=== PATIENT | male | born 1940 | race African-American/Black ===

== ENCOUNTER 2018-12-12 10:54 | Inpatient (IN) ==
[2018-12-12] MEDS ORDERED: SODIUM CHLORIDE 0.9% 500 ML IV STA (11:25)
[2018-12-12 13:15] LABS: Basophils % 0.6 % (0.0-0.8); Eosinophils % 0.6 % (0.00-10.9); Hematocrit 36.3 VOL% (42.0-52.0); Hemoglobin 11.3 GM/DL (14.0-18.0); Immature Granulocytes % 0.4 %; Immature Granulocytes Absolute 0.03 #; Lymphocytes # 0.9 10*3/uL (1.4-4.0); Lymphocytes % 13.1 % (21.2-54.2); Mean Corpuscular HGB Conc 31.1 GM/DL (32-36); Mean Corpuscular Hemoglobin 29 PG (27-34); Mean Corpuscular Volume 94.5 FL (87-102); Mean Platelet Volume 8.1 FL (9.6-12.0); Monocytes # 0.7 10*3/uL (0.11-0.8); Monocytes % 9.5 % (1.7-12.7); Neutrophils # 5.4 10*3/uL (1.4-7.4); Neutrophils % 75.8 % (38.7-73.9); Platelet Count 244 T/CUMM (130-400); Red Blood Count 3.84 MC/CUMM (3.8-5.5); Red Cell Distribution Width 17.2 % (9.3-17.3); White Blood Count 7.1 T/CUMM (4-12)
[2018-12-12 13:22] LABS: PT Patient Result 10.9 SECS; Partial Thromboplastin Time 31.3 SECS (0-40)
[2018-12-12 13:32] LABS: Apearance,Urine CLOUDY (Clear); Bilirubin,Urine Negative (Negative); Blood, Urine Small mg/dL (Negative); Glucose,Urine (UA) Negative (Negative); Ketones,Urine 5 mg/dL (Negative); Nitrite,Urine Negative (Negative); Protein,Urine 100 MG/DL; RBC,Urine 212 /HPF (0-4); Urine Color Yellow (Yellow); Urine Specific Gravity 1.012 (1.001-1.035); Urine Urobilinogen < 2.0 EU/DL (0.2-1.0); WBC,Urine 29768 /HPF (0-6)
[2018-12-12] MEDS ORDERED: LEVOFLOXACIN INJ 750 MG in PREMIX 1 EACH IV STA (13:34)
[2018-12-12 13:37] LABS: Alanine Aminotransferase 19 U/L (16-61); Albumin 3.1 G/DL (3.4-5.0); Alkaline Phosphatase 87 U/L (45-117); Aspartate Amino Transferase 69 U/L (0-37); Blood Urea Nitrogen 24 MG/DL (7-18); CKMB % 0.6 %; Calcium 9.1 MG/DL (8.5-10.1); Glucose 133 MG/DL (74-106); Osmolality,Calculated 275.1 MOS/KG (273-304); Potassium 3.4 MMOL/L (3.5-5.1); Sodium 135 MMOL/L (136-145); Total Protein 8.2 G/DL (6.4-8.3)
[2018-12-12 13:41] LABS: Troponin I 0.193 NG/ML (0.00-0.045)
[2018-12-12 13:48] LABS: Barbiturates Screen,Urine Negative (Negative); Benzodiazepines Screen,Urine Negative (Negative); Cannabinoid Screen,Urine Negative (Negative); Opiate Screen,Urine Negative (Negative); Phencyclidine Screen,Urine Negative (Negative)
[2018-12-12] MEDS ORDERED: ACETAMINOPHEN 325 MG TABLET PO PRN (15:10)
[2018-12-12] MEDS ORDERED: ONDANSETRON 4 MG/2 ML VIAL IV PRN (15:10)
[2018-12-12] MEDS ORDERED: GLUCAGON 1 MG VIAL IM PRN (15:10)
[2018-12-12] MEDS ORDERED: DEXTROSE 50% 25 GM/50 ML VIAL IV PRN (15:10)
[2018-12-12] MEDS ORDERED: EPOETIN ALFA 2,000 UNIT/1 ML VIAL IV PRN (15:13)
[2018-12-12] MEDS ORDERED: HEPARIN 10,000 UNIT/10 ML VIAL IV SCH (15:13)
[2018-12-12] MEDS: INSULIN LISPRO 100 UNIT/ML SUBCUT SCH ×2 (16:24→21:02)
[2018-12-12] MEDS: GLUCOSAMINE 500 MG TABLET PO SCH (21:02)
[2018-12-12] MEDS: HEPARIN 5,000 UNIT/1 ML VIAL SUBCUT SCH (21:02)
[2018-12-12] MEDS: MULTIVITAMIN (INTRINSIC) CAPSULE PO SCH (21:02)
[2018-12-12] MEDS: OMEGA 3 ACID ETHYL ESTERS 1 GM CAPSULE PO SCH (21:02)
[2018-12-13] MEDS: HEPARIN 5,000 UNIT/1 ML VIAL SUBCUT SCH ×3 (04:52→20:58)
[2018-12-13 05:45] LABS: Basophils # 0.1 10*3/uL (0.0-0.2); Basophils % 0.9 % (0.0-0.8); Eosinophils # 0.2 10*3/uL (0.0-0.87); Eosinophils % 2.9 % (0.00-10.9); Hematocrit 32.8 VOL% (42.0-52.0); Immature Granulocytes % 0.7 %; Immature Granulocytes Absolute 0.04 #; Lymphocytes # 1.1 10*3/uL (1.4-4.0); Mean Corpuscular HGB Conc 30.5 GM/DL (32-36); Mean Corpuscular Hemoglobin 29 PG (27-34); Mean Corpuscular Volume 94.3 FL (87-102); Mean Platelet Volume 8.4 FL (9.6-12.0); Monocytes # 0.6 10*3/uL (0.11-0.8); Monocytes % 10.8 % (1.7-12.7); Neutrophils # 3.5 10*3/uL (1.4-7.4); Neutrophils % 64.7 % (38.7-73.9); Platelet Count 248 T/CUMM (130-400); Red Blood Count 3.48 MC/CUMM (3.8-5.5); Red Cell Distribution Width 17.2 % (9.3-17.3); White Blood Count 5.5 T/CUMM (4-12)
[2018-12-13 05:57] LABS: Calcium 8.9 MG/DL (8.5-10.1); Osmolality,Calculated 277.8 MOS/KG (273-304); Potassium 3.3 MMOL/L (3.5-5.1)
[2018-12-13] MEDS ORDERED: SODIUM CHLORIDE 0.9% 500 ML IV ONE (10:12)
[2018-12-13] MEDS ORDERED: VANCOMYCIN INJ 500 MG in SODIUM CHLORIDE 0.9% 100 ML IV PRN (10:20)
[2018-12-13] MEDS: INSULIN LISPRO 100 UNIT/ML SUBCUT SCH ×4 (10:38→20:59)
[2018-12-13] MEDS: TAMSULOSIN 0.4 MG CAPSULE PO SCH (10:40)
[2018-12-13] MEDS: OMEGA 3 ACID ETHYL ESTERS 1 GM CAPSULE PO SCH ×2 (10:40→20:59)
[2018-12-13] MEDS: ASCORBIC ACID 500 MG TABLET PO SCH (10:40)
[2018-12-13] MEDS: GLUCOSAMINE 500 MG TABLET PO SCH ×2 (10:40→20:58)
[2018-12-13] MEDS: amLODIPine 5 MG TABLET PO SCH (10:41)
[2018-12-13] MEDS: MULTIVITAMIN (INTRINSIC) CAPSULE PO SCH ×2 (10:41→20:59)
[2018-12-13] MEDS: MULTIVITAMIN (CENTRUM) TABLET PO SCH (10:41)
[2018-12-13] MEDS ORDERED: VANCOMYCIN INJ 1,000 MG in SODIUM CHLORIDE 0.9% 250 ML IV ONE (11:00)
[2018-12-13] MEDS ORDERED: POTASSIUM CHLORIDE 10 MEQ TABLET PO ONE (11:55)
[2018-12-14] MEDS: HEPARIN 5,000 UNIT/1 ML VIAL SUBCUT SCH ×3 (04:24→21:11)
[2018-12-14 05:18] LABS: Basophils # 0.1 10*3/uL (0.0-0.2); Basophils % 0.9 % (0.0-0.8); Eosinophils # 0.2 10*3/uL (0.0-0.87); Eosinophils % 4.3 % (0.00-10.9); Hematocrit 31.9 VOL% (42.0-52.0); Hemoglobin 9.7 GM/DL (14.0-18.0); Immature Granulocytes % 0.5 %; Immature Granulocytes Absolute 0.03 #; Lymphocytes # 1.4 10*3/uL (1.4-4.0); Lymphocytes % 24.2 % (21.2-54.2); Mean Corpuscular HGB Conc 30.4 GM/DL (32-36); Mean Corpuscular Hemoglobin 29 PG (27-34); Mean Corpuscular Volume 94.7 FL (87-102); Mean Platelet Volume 8.8 FL (9.6-12.0); Monocytes # 0.6 10*3/uL (0.11-0.8); Monocytes % 10.2 % (1.7-12.7); Neutrophils # 3.3 10*3/uL (1.4-7.4); Neutrophils % 59.9 % (38.7-73.9); Platelet Count 252 T/CUMM (130-400); Red Blood Count 3.37 MC/CUMM (3.8-5.5); White Blood Count 5.6 T/CUMM (4-12)
[2018-12-14 05:58] LABS: Calcium 8.6 MG/DL (8.5-10.1); Osmolality,Calculated 283.8 MOS/KG (273-304); Potassium 3.8 MMOL/L (3.5-5.1)
[2018-12-14] MEDS: INSULIN LISPRO 100 UNIT/ML SUBCUT SCH ×4 (07:56→21:33)
[2018-12-14] MEDS ORDERED: REGADENOSON 0.4 MG/5 ML SYRINGE IV ONE (08:49)
[2018-12-14] MEDS: ASCORBIC ACID 500 MG TABLET PO SCH (10:30)
[2018-12-14] MEDS: OMEGA 3 ACID ETHYL ESTERS 1 GM CAPSULE PO SCH ×2 (10:30→21:11)
[2018-12-14] MEDS: MULTIVITAMIN (INTRINSIC) CAPSULE PO SCH ×2 (10:30→21:11)
[2018-12-14] MEDS: GLUCOSAMINE 500 MG TABLET PO SCH ×2 (10:30→21:11)
[2018-12-14] MEDS: amLODIPine 5 MG TABLET PO SCH (10:30)
[2018-12-14] MEDS: TAMSULOSIN 0.4 MG CAPSULE PO SCH (10:30)
[2018-12-14] MEDS: MULTIVITAMIN (CENTRUM) TABLET PO SCH (10:30)
[2018-12-14] MEDS ORDERED: LEVOFLOXACIN INJ 500 MG in PREMIX 1 EACH IV SCH (15:30)
[2018-12-14] MEDS ORDERED: VANCOMYCIN INJ 500 MG in SODIUM CHLORIDE 0.9% 100 ML IV ONE (17:00)
[2018-12-14] MEDS ORDERED: SODIUM CHLORIDE 0.9% 500 ML IV ONE (20:13)
[2018-12-14] MEDS ORDERED: AMPICILLIN INJ 2,000 MG in SODIUM CHLORIDE 0.9% 100 ML IV ONE (20:14)
[2018-12-14 20:55] LABS: Hematocrit 33.4 VOL% (42.0-52.0); Hemoglobin 10.4 GM/DL (14.0-18.0)
[2018-12-14] MEDS ORDERED: ADENOSINE 6 MG/2 ML VIAL ONE ×2 (22:12)
[2018-12-14] MEDS ORDERED: ADENOSINE 6 MG/2 ML VIAL IV ONE (22:51)
[2018-12-15] MEDS: HEPARIN 5,000 UNIT/1 ML VIAL SUBCUT SCH ×3 (03:39→21:43)
[2018-12-15 06:02] LABS: Basophils % 0.4 % (0.0-0.8); Eosinophils # 0.2 10*3/uL (0.0-0.87); Eosinophils % 2.1 % (0.00-10.9); Hematocrit 34.1 VOL% (42.0-52.0); Hemoglobin 10.3 GM/DL (14.0-18.0); Immature Granulocytes % 0.8 %; Immature Granulocytes Absolute 0.06 #; Lymphocytes # 1.1 10*3/uL (1.4-4.0); Lymphocytes % 14.4 % (21.2-54.2); Mean Corpuscular HGB Conc 30.2 GM/DL (32-36); Mean Corpuscular Hemoglobin 29 PG (27-34); Mean Platelet Volume 8.6 FL (9.6-12.0); Monocytes # 0.6 10*3/uL (0.11-0.8); Monocytes % 7.8 % (1.7-12.7); Neutrophils # 5.4 10*3/uL (1.4-7.4); Neutrophils % 74.5 % (38.7-73.9); Platelet Count 278 T/CUMM (130-400); Red Blood Count 3.59 MC/CUMM (3.8-5.5); Red Cell Distribution Width 17.2 % (9.3-17.3); White Blood Count 7.3 T/CUMM (4-12)
[2018-12-15 06:28] LABS: Calcium 8.8 MG/DL (8.5-10.1); Osmolality,Calculated 298.4 MOS/KG (273-304); Potassium 4.3 MMOL/L (3.5-5.1)
[2018-12-15] MEDS: INSULIN LISPRO 100 UNIT/ML SUBCUT SCH ×4 (08:22→21:43)
[2018-12-15] MEDS ORDERED: METOPROLOL TARTRATE 25 MG TABLET PO ONE (12:11)
[2018-12-15 13:58] LABS: Free T4 (Free Thyroxine) 1.04 NG/DL (0.76-1.46); Thyroid Stimulating Hormone 2.59 uIU/ml (0.358-3.74)
[2018-12-15] MEDS: OMEGA 3 ACID ETHYL ESTERS 1 GM CAPSULE PO SCH ×2 (14:59→21:43)
[2018-12-15] MEDS: MULTIVITAMIN (INTRINSIC) CAPSULE PO SCH ×2 (15:00→21:44)
[2018-12-15] MEDS: amLODIPine 5 MG TABLET PO SCH (15:01)
[2018-12-15] MEDS: TAMSULOSIN 0.4 MG CAPSULE PO SCH (15:18)
[2018-12-15] MEDS: MULTIVITAMIN (CENTRUM) TABLET PO SCH (15:18)
[2018-12-15] MEDS: ASCORBIC ACID 500 MG TABLET PO SCH (15:18)
[2018-12-15] MEDS: GLUCOSAMINE 500 MG TABLET PO SCH ×2 (15:18→21:43)
[2018-12-15] MEDS: METOPROLOL TARTRATE 25 MG TABLET PO SCH (21:44)
[2018-12-16] MEDS: HEPARIN 5,000 UNIT/1 ML VIAL SUBCUT SCH ×2 (04:52→12:00)
[2018-12-16] MEDS: MULTIVITAMIN (INTRINSIC) CAPSULE PO SCH (09:00)
[2018-12-16] MEDS: GLUCOSAMINE 500 MG TABLET PO SCH (09:00)
[2018-12-16] MEDS: TAMSULOSIN 0.4 MG CAPSULE PO SCH (09:00)
[2018-12-16] MEDS: METOPROLOL TARTRATE 25 MG TABLET PO SCH (09:00)
[2018-12-16] MEDS: OMEGA 3 ACID ETHYL ESTERS 1 GM CAPSULE PO SCH (09:00)
[2018-12-16] MEDS: INSULIN LISPRO 100 UNIT/ML SUBCUT SCH ×2 (09:00→13:05)
[2018-12-16] MEDS: ASCORBIC ACID 500 MG TABLET PO SCH (09:00)
[2018-12-16] MEDS: MULTIVITAMIN (CENTRUM) TABLET PO SCH (09:00)
[2018-12-16 15:35] VITALS: BP 83/50
== END 2018-12-16 15:43 | disposition home health service (06) | DRG 564 ==
LOC: N.ED 10:54 → N.EDINP 15:04 → N.5E 15:47
PROVIDERS: ADMIT Internal Medicine; ATTEND Internal Medicine